=== PATIENT | male | born 1965 | race Caucasian/White ===

== ENCOUNTER 2019-09-14 13:19 | Observation (INO) ==
[2019-09-14 13:49] LABS: Immature Granulocytes % 0.5 % (0-4)
[2019-09-14 13:51] LABS: Basophils % 0.2 %; Eosinophils # 0.1 K/mcL (0.0-0.6); Eosinophils % 0.7 %; Hematocrit 31.6 % (37.5-50.1); Hemoglobin 11.3 g/dL (12.9-16.9); Immature Platelets 7.5 % (1.1-6.1); Lymphocytes # 0.9 K/mcL (0.6-4.6); Lymphocytes % 10.4 %; Mean Corpuscular HGB Conc 35.8 g/dL (31.6-35.5); Mean Corpuscular Hemoglobin 33.3 pg (28.0-33.3); Mean Corpuscular Volume 93.2 fL (83.0-100.0); Mean Platelet Volume 10.6 fL (9.4-12.4); Monocytes # 0.9 K/mcL (0.0-1.3); Monocytes % 10.6 %; Neutrophils # 6.4 K/mcL (1.6-8.9); Red Blood Count 3.39 M/mcL (4.19-5.50); Red Cell Distribution Width 14.8 % (11.5-14.5); Segmented Neutrophils % 77.6 %; White Blood Count 8.3 K/mcL (4.3-11.1)
[2019-09-14 13:52] LABS: Platelet Count 88 K/mcL (140-400)
[2019-09-14 13:55] LABS: INR 0.9; Prothrombin Time 10.3 Seconds (9.4-12.1)
[2019-09-14 13:58] LABS: Activated Partial Thrombo Time 40.2 Seconds (26.0-36.0)
[2019-09-14 14:09] LABS: BUN/Creatinine Ratio 9 (6-26); Blood Urea Nitrogen 9 mg/dL (6-20); Calcium 8.6 mg/dL (8.6-10.3); Carbon Dioxide 24 mEq/L (23-29); Chloride 96 mEq/L (98-107); Glucose 90 mg/dL (70-105); Osmolality,Calculated 266 (280-300); Potassium 4.1 mEq/L (3.5-5.1); Sodium 129 mEq/L (136-145); Troponin I < 0.03 ng/mL (< 0.04); eGFR For African Americans > 60 (> 60); eGFR For Non-African Americans > 60 (> 60)
[2019-09-14] MEDS ORDERED: cefTRIAXone 1,000 MG in Water for inj. (sterile) 10 ML IVP STA (14:38)
[2019-09-14] MEDS ORDERED: Azithromycin 500 MG in 0.9 % Sodium Chloride 250 ML IVPB STA (14:38)
[2019-09-14] MEDS ORDERED: ALPRAZolam 0.5 MG TABLET PO ONE (15:53)
[2019-09-14] MEDS ORDERED: Naloxone 0.4 MG/ML INJ IVP PRN (16:17)
[2019-09-14] MEDS: predniSONE 20 MG TABLET PO SCH (18:26)
[2019-09-14] MEDS ORDERED: *HR* Metoprolol 5 MG/5 ML VIAL IVP ONE ×2 (18:33→19:02)
[2019-09-14 18:44] LABS: Bilirubin,Urine Negative (Negative); Blood,Urine Negative (Negative); Clarity,Urine Clear (Clear); Color,Urine Yellow (Yellow); Glucose,Urine (UA) Normal (Normal); Ketones,Urine Trace mg/dL (Negative); Leukocyte Esterase,Urine Negative (Negative); Nitrite,Urine Negative (Negative); Protein,Urine Negative (Neg-Trace); Specific Gravity,Urine 1.011 (1.010-1.025); Urobilinogen,Urine Normal (Normal)
[2019-09-14 18:52] LABS: Sodium, Urine 75.1 mEq/L
[2019-09-14 19:42] LABS: Adenovirus Not Detected (Not Detect); Bordetella Pertussis Not Detected (Not Detect); Chlamydophila pneumoniae Not Detected (Not Detect); Coronavirus 229E Not Detected (Not Detect); Coronavirus HKU1 Not Detected (Not Detect); Coronavirus NL63 Not Detected (Not Detect); Coronavirus OC43 Not Detected (Not Detect); Human Metapneumovirus Not Detected (Not Detect); Human Rhinovirus/Enterovirus Not Detected (Not Detect); Influenza A Subtype 2009 H1 Not Detected (Not Detect); Influenza A Untypeable Not Detected (Not Detect); Influenza B Not Detected (Not Detect); Mycoplasma pneumoniae Not Detected (Not Detect); Parainfluenza Virus 1 Not Detected (Not Detect); Parainfluenza Virus 2 Not Detected (Not Detect); Parainfluenza Virus 3 Not Detected (Not Detect); Parainfluenza Virus 4 Not Detected (Not Detect); Respiratory Syncytial Virus Not Detected (Not Detect)
[2019-09-14] MEDS: Ipratropium/Albuterol Neb 3 ML IH SCH (22:01)
[2019-09-15] MEDS: Ipratropium/Albuterol Neb 3 ML IH SCH ×2 (04:51→10:41)
[2019-09-15 05:31] LABS: Basophils % 0.2 %
[2019-09-15 05:33] LABS: Hematocrit 33.4 % (37.5-50.1); Hemoglobin 11.3 g/dL (12.9-16.9); Immature Granulocytes % 0.3 % (0-4); Immature Platelets 8.6 % (1.1-6.1); Lymphocytes # 0.5 K/mcL (0.6-4.6); Lymphocytes % 7.8 %; Mean Corpuscular HGB Conc 33.8 g/dL (31.6-35.5); Mean Corpuscular Hemoglobin 32.6 pg (28.0-33.3); Mean Corpuscular Volume 96.3 fL (83.0-100.0); Mean Platelet Volume 10.8 fL (9.4-12.4); Monocytes # 0.1 K/mcL (0.0-1.3); Monocytes % 1.8 %; Neutrophils # 5.4 K/mcL (1.6-8.9); Red Blood Count 3.47 M/mcL (4.19-5.50); Red Cell Distribution Width 15.1 % (11.5-14.5); Segmented Neutrophils % 89.9 %
[2019-09-15 05:44] LABS: Platelet Count 88 K/mcL (140-400)
[2019-09-15 05:47] LABS: BUN/Creatinine Ratio 10 (6-26); Blood Urea Nitrogen 9 mg/dL (6-20); Calcium 8.9 mg/dL (8.6-10.3); Carbon Dioxide 22 mEq/L (23-29); Chloride 99 mEq/L (98-107); Glucose 107 mg/dL (70-105); Magnesium 1.5 mg/dL (1.6-2.6); Osmolality,Calculated 269 (280-300); Phosphorous 3.6 mg/dL (2.7-4.5); Potassium 4.6 mEq/L (3.5-5.1); Sodium 130 mEq/L (136-145); eGFR For African Americans > 60 (> 60); eGFR For Non-African Americans > 60 (> 60)
[2019-09-15] MEDS ORDERED: Doxycycline 100 MG in 0.9 % Sodium Chloride Mini Bag 100 ML IVPB SCH (06:00)
[2019-09-15] MEDS: predniSONE 20 MG TABLET PO SCH (08:21)
[2019-09-15] MEDS ORDERED: Folic Acid 1 MG TABLET PO SCH (09:00)
[2019-09-15] MEDS ORDERED: cefTRIAXone 1,000 MG in Water for inj. (sterile) 10 ML IVP SCH (09:00)
[2019-09-15 11:42] VITALS: BP 115/80
[2019-09-15] MEDS ORDERED: FLU Vac QV 19-20 (6Month+)/PF 0.5 ML SYRINGE IM ONE (15:04)
[2019-09-28] MEDS ORDERED: HALOPERIDOL DECANOATE IM SCH (09:00)
== END 2019-09-15 16:16 | disposition home or self-care (01) ==
LOC: EMEROOARM 13:19 → 2ANU 13:19 → SUATTDRO 16:36 → 2ANU 17:31
PROVIDERS: ADMIT Internal Medicine; ATTEND Internal Medicine

== ENCOUNTER 2019-11-19 11:08 | Inpatient (IN) ==
[2019-11-19] MEDS ORDERED: 0.9 % Sodium Chloride 1,000 ML IVC ONE (11:24)
[2019-11-19 12:29] LABS: Basophils % 0.5 %; Eosinophils # 0.1 K/mcL (0.0-0.6); Eosinophils % 2.3 %; Hematocrit 34.4 % (37.5-50.1); Hemoglobin 11.5 g/dL (12.9-16.9); Immature Granulocytes % 0.5 % (0-4); Lymphocytes # 0.7 K/mcL (0.6-4.6); Lymphocytes % 11.4 %; Mean Corpuscular HGB Conc 33.4 g/dL (31.6-35.5); Mean Corpuscular Hemoglobin 32.9 pg (28.0-33.3); Mean Corpuscular Volume 98.3 fL (83.0-100.0); Mean Platelet Volume 11.1 fL (9.4-12.4); Monocytes # 0.7 K/mcL (0.0-1.3); Monocytes % 11.2 %; Red Cell Distribution Width 13.2 % (11.5-14.5); Segmented Neutrophils % 74.1 %
[2019-11-19 12:30] LABS: INR 1.2; Prothrombin Time 13.3 Seconds (9.4-12.1)
[2019-11-19 12:31] LABS: Neutrophils # 4.5 K/mcL (1.6-8.9); Platelet Count 81 K/mcL (140-400)
[2019-11-19 12:32] LABS: Platelet Estimate Decreased (Normal)
[2019-11-19 12:52] LABS: Alanine Aminotransferase 4 Units/L (7-52); Albumin/Globulin Ratio 0.8 (1.1-2.2); Alkaline Phosphatase 73 Units/L (34-104); Aspartate Amino Transferase 6 Units/L (13-39); BUN/Creatinine Ratio 10 (6-26); Bilirubin,Direct 0.1 mg/dL (0.0-0.2); Bilirubin,Indirect 0.3 mg/dL (0.0-1.0); Bilirubin,Total 0.4 mg/dL (0.3-1.0); Blood Urea Nitrogen 8 mg/dL (6-20); Carbon Dioxide 25 mEq/L (23-29); Chloride 98 mEq/L (98-107); Globulin 3.8 g/dL (2.4-3.5); Glucose 84 mg/dL (70-105); Lipase < 3 Units/L (11-82); Magnesium 1.4 mg/dL (1.6-2.6); Osmolality,Calculated 264 (280-300); Potassium 3.1 mEq/L (3.5-5.1); Sodium 128 mEq/L (136-145); Total Protein 6.8 g/dL (6.4-8.9); eGFR For African Americans > 60 (> 60); eGFR For Non-African Americans > 60 (> 60)
[2019-11-19 13:29] LABS: Bilirubin,Urine Negative (Negative); Blood,Urine Negative (Negative); Clarity,Urine Clear (Clear); Color,Urine Yellow (Yellow); Glucose,Urine (UA) Normal (Normal); Ketones,Urine Negative (Negative); Leukocyte Esterase,Urine Negative (Negative); Nitrite,Urine Negative (Negative); Protein,Urine Negative (Neg-Trace); Specific Gravity,Urine 1.013 (1.010-1.025); Urobilinogen,Urine Normal (Normal)
[2019-11-19] MEDS ORDERED: Ondansetron 4 MG/2 ML VIAL IVP PRN (13:45)
[2019-11-19] MEDS ORDERED: Naloxone 0.4 MG/ML INJ IVP PRN (13:45)
[2019-11-19] MEDS ORDERED: SODIUM CHLORIDE/NAHCO3/KCL/PEG 4,000 ML SOLN.RECON PO ONE (17:00)
[2019-11-19] MEDS: 0.9 % Sodium Chloride 1,000 ML IVC SCH (17:14)
[2019-11-20 04:57] LABS: Eosinophils % 5.1 %
[2019-11-20 04:59] LABS: Basophils % 0.9 %; Eosinophils # 0.2 K/mcL (0.0-0.6); Hematocrit 36.1 % (37.5-50.1); Immature Granulocytes % 0.7 % (0-4); Immature Platelets 7.1 % (1.1-6.1); Lymphocytes # 0.8 K/mcL (0.6-4.6); Lymphocytes % 17.6 %; Mean Corpuscular HGB Conc 33.2 g/dL (31.6-35.5); Mean Corpuscular Hemoglobin 32.1 pg (28.0-33.3); Mean Corpuscular Volume 96.5 fL (83.0-100.0); Mean Platelet Volume 10.8 fL (9.4-12.4); Monocytes # 0.6 K/mcL (0.0-1.3); Monocytes % 13.9 %; Neutrophils # 2.8 K/mcL (1.6-8.9); Red Blood Count 3.74 M/mcL (4.19-5.50); Red Cell Distribution Width 13.3 % (11.5-14.5); Segmented Neutrophils % 61.8 %; White Blood Count 4.5 K/mcL (4.3-11.1)
[2019-11-20 05:04] LABS: Platelet Count 72 K/mcL (140-400)
[2019-11-20 05:20] LABS: BUN/Creatinine Ratio 7 (6-26); Blood Urea Nitrogen 5 mg/dL (6-20); Calcium 8.1 mg/dL (8.6-10.3); Carbon Dioxide 22 mEq/L (23-29); Chloride 102 mEq/L (98-107); Glucose 86 mg/dL (70-105); Magnesium 1.4 mg/dL (1.6-2.6); Osmolality,Calculated 273 (280-300); Phosphorous 2.8 mg/dL (2.7-4.5); Potassium 3.4 mEq/L (3.5-5.1); Sodium 133 mEq/L (136-145); eGFR For African Americans > 60 (> 60); eGFR For Non-African Americans > 60 (> 60)
[2019-11-20] MEDS: 0.9 % Sodium Chloride 1,000 ML IVC SCH (06:38)
[2019-11-20] MEDS: Pantoprazole 40 MG VIAL IVP SCH (08:02)
[2019-11-20] MEDS ORDERED: *HR* LORazepam 2 MG/ML VIAL IVP ONE (08:30)
[2019-11-20] MEDS ORDERED: *HR* EPINEPHrine 1 MG/10 ML SYRINGE IVP ONE (13:40)
[2019-11-20] MEDS ORDERED: Lidocaine -MPF 2% 2 ML VIAL ONE (14:19)
[2019-11-20] MEDS ORDERED: *HR* EPINEPHrine 1 MG/10 ML SYRINGE ONE (14:24)
[2019-11-20] MEDS: Divalproex (24 HR) 500 MG TABLET PO SCH (20:38)
[2019-11-21 07:43] LABS: BUN/Creatinine Ratio 6 (6-26); Blood Urea Nitrogen 4 mg/dL (6-20); Calcium 7.8 mg/dL (8.6-10.3); Carbon Dioxide 22 mEq/L (23-29); Chloride 101 mEq/L (98-107); Glucose 79 mg/dL (70-105); Magnesium 1.5 mg/dL (1.6-2.6); Osmolality,Calculated 270 (280-300); Potassium 3.2 mEq/L (3.5-5.1); Sodium 132 mEq/L (136-145); eGFR For African Americans > 60 (> 60); eGFR For Non-African Americans > 60 (> 60)
[2019-11-21] MEDS: Metoprolol XL (24 HR) Succ 25 MG TAB.ER.24H PO SCH (08:00)
[2019-11-21] MEDS: Aspirin Enteric Coated 81 MG Tablet PO SCH (08:07)
[2019-11-21] MEDS: Pantoprazole 40 MG VIAL IVP SCH (08:08)
[2019-11-21] MEDS ORDERED: Potassium Chloride Elixir 20 MEQ/15 ML UDC PO ONE ×2 (12:24→17:00)
[2019-11-21] MEDS: Divalproex (24 HR) 500 MG TABLET PO SCH (21:12)
[2019-11-22 05:42] LABS: BUN/Creatinine Ratio 7 (6-26); Blood Urea Nitrogen 5 mg/dL (6-20); Calcium 7.8 mg/dL (8.6-10.3); Carbon Dioxide 22 mEq/L (23-29); Chloride 96 mEq/L (98-107); Glucose 78 mg/dL (70-105); Magnesium 1.8 mg/dL (1.6-2.6); Osmolality,Calculated 258 (280-300); Potassium 3.4 mEq/L (3.5-5.1); Sodium 126 mEq/L (136-145); eGFR For African Americans > 60 (> 60); eGFR For Non-African Americans > 60 (> 60)
[2019-11-22] MEDS ORDERED: Potassium Chloride Elixir 20 MEQ/15 ML UDC PO ONE (07:33)
[2019-11-22] MEDS: Pantoprazole 40 MG VIAL IVP SCH (09:13)
[2019-11-22] MEDS: Metoprolol XL (24 HR) Succ 25 MG TAB.ER.24H PO SCH (09:13)
[2019-11-22] MEDS: Aspirin Enteric Coated 81 MG Tablet PO SCH (09:13)
[2019-11-22] MEDS: (Valbenazine Tosylate [Ingrezza] 40 MG) PO SCH (11:35)
[2019-11-22] MEDS: Divalproex (24 HR) 500 MG TABLET PO SCH (19:35)
[2019-11-23 03:53] VITALS: BP 154/83
[2019-11-23 04:56] LABS: Hemoglobin 11.1 g/dL (12.9-16.9); Red Cell Distribution Width 13.2 % (11.5-14.5)
[2019-11-23 04:58] LABS: Immature Platelets 4.4 % (1.1-6.1); Mean Corpuscular HGB Conc 33.6 g/dL (31.6-35.5); Mean Corpuscular Hemoglobin 32.7 pg (28.0-33.3); Mean Corpuscular Volume 97.3 fL (83.0-100.0); Mean Platelet Volume 10.5 fL (9.4-12.4); Red Blood Count 3.39 M/mcL (4.19-5.50); White Blood Count 4.6 K/mcL (4.3-11.1)
[2019-11-23 05:24] LABS: BUN/Creatinine Ratio 9 (6-26); Blood Urea Nitrogen 6 mg/dL (6-20); Calcium 7.8 mg/dL (8.6-10.3); Carbon Dioxide 22 mEq/L (23-29); Chloride 98 mEq/L (98-107); Glucose 71 mg/dL (70-105); Osmolality,Calculated 260 (280-300); Potassium 3.5 mEq/L (3.5-5.1); Sodium 127 mEq/L (136-145); eGFR For African Americans > 60 (> 60); eGFR For Non-African Americans > 60 (> 60)
[2019-11-23 05:25] LABS: % Iron Saturation 25 % (20-55); Iron 53 mcg/dL (65-175); Transferrin 152 mg/dL (203-362)
[2019-11-23 05:38] LABS: Thyroid Stimulating Hormone 6.861 mcIU/mL (0.340-5.600)
[2019-11-23 05:43] LABS: Ferritin 99 ng/mL (20-250)
[2019-11-23 05:48] LABS: Folate 14.8 ng/mL (3.0-16.0)
[2019-11-23] MEDS: Metoprolol XL (24 HR) Succ 25 MG TAB.ER.24H PO SCH (08:26)
[2019-11-23] MEDS: Aspirin Enteric Coated 81 MG Tablet PO SCH (08:26)
[2019-11-23] MEDS: (Valbenazine Tosylate [Ingrezza] 40 MG) PO SCH (08:27)
[2019-11-24] MEDS ORDERED: Cyanocobalamin (B-12) 1,000 MCG TABLET PO SCH (09:00)
== END 2019-11-23 11:54 | disposition home or self-care (01) | DRG 392 ==
LOC: 3ANU 11:08 → EMEROOARM 11:08 → SUATTDRO 15:27 → 3ANU 15:50
PROVIDERS: ADMIT Student in an Organized Health Care Education/Training Program; ATTEND Internal Medicine
PROC: ENDOEBX (2019-11-20 13:35)

== ENCOUNTER 2020-02-01 15:08 | Inpatient (IN) ==
[2020-02-01] MEDS ORDERED: 0.9 % Sodium Chloride 1,000 ML IVC ONE (15:13)
[2020-02-01 15:47] LABS: Basophils % 0.2 %; Eosinophils % 0.1 %; Hematocrit 35.2 % (37.5-50.1); Hemoglobin 11.9 g/dL (12.9-16.9); Immature Granulocytes % 0.8 % (0-4); Lymphocytes # 0.7 K/mcL (0.6-4.6); Lymphocytes % 3.5 %; Mean Corpuscular HGB Conc 33.8 g/dL (31.6-35.5); Mean Corpuscular Hemoglobin 31.6 pg (28.0-33.3); Mean Corpuscular Volume 93.4 fL (83.0-100.0); Mean Platelet Volume 11.6 fL (9.4-12.4); Monocytes # 1.6 K/mcL (0.0-1.3); Monocytes % 8.6 %; Neutrophils # 16.5 K/mcL (1.6-8.9); Platelet Count 147 K/mcL (140-400); Red Blood Count 3.77 M/mcL (4.19-5.50); Red Cell Distribution Width 17.4 % (11.5-14.5); Segmented Neutrophils % 86.8 %
[2020-02-01] MEDS ORDERED: cefTRIAXone 1,000 MG in Water for inj. (sterile) 10 ML IVPB ONE (16:47)
[2020-02-01 16:49] LABS: Alanine Aminotransferase 10 Units/L (7-52); Albumin 3.3 g/dL (3.5-5.7); Albumin/Globulin Ratio 1.1 (1.1-2.2); Alkaline Phosphatase 84 Units/L (34-104); Aspartate Amino Transferase 17 Units/L (13-39); BUN/Creatinine Ratio 16 (6-26); Bilirubin,Direct 0.2 mg/dL (0.0-0.2); Bilirubin,Indirect 0.6 mg/dL (0.0-1.0); Bilirubin,Total 0.8 mg/dL (0.3-1.0); Blood Urea Nitrogen 29 mg/dL (6-20); Calcium 8.6 mg/dL (8.6-10.3); Carbon Dioxide 8 mEq/L (23-29); Chloride 116 mEq/L (98-107); Glucose 81 mg/dL (70-105); Lipase 27 Units/L (11-82); Osmolality,Calculated 289 (280-300); Potassium 2.5 mEq/L (3.5-5.1); Sodium 137 mEq/L (136-145); Total Protein 6.3 g/dL (6.4-8.9); Troponin I < 0.03 ng/mL (< 0.04); eGFR For African Americans 49 (> 60); eGFR For Non-African Americans 40 (> 60)
[2020-02-01] MEDS ORDERED: Potassium Chloride Elixir 20 MEQ/15 ML UDC PO ONE ×2 (16:58→17:27)
[2020-02-01 17:04] LABS: Bilirubin,Urine Negative (Negative); Blood,Urine Small (Negative); Clarity,Urine Cloudy (Clear); Color,Urine Yellow (Yellow); Glucose,Urine (UA) Normal (Normal); Ketones,Urine Negative (Negative); Leukocyte Esterase,Urine Moderate (Negative); Nitrite,Urine Positive (Negative); PH,Urine 5.5 pH Units (5.0-8.0); Protein,Urine 30 mg/dL (Neg-Trace); Specific Gravity,Urine 1.012 (1.010-1.025); Urobilinogen,Urine Normal (Normal)
[2020-02-01 17:05] LABS: Bacteria,Urine None Seen per hpf (None-Few); Hyaline Casts,Urine None Seen per lpf (None-Few); RBC,Urine 0-3 per hpf (0-3); Squamous Epithelial Cell,Urine Moderate per lpf (None-Few); WBC,Urine 30-50 per hpf (0-3)
[2020-02-01] MEDS ORDERED: Naloxone 0.4 MG/ML INJ IVP PRN (17:24)
[2020-02-01] MEDS ORDERED: Ondansetron 4 MG/2 ML VIAL IVP PRN (17:24)
[2020-02-01] MEDS ORDERED: Diphenoxylate/Atropine 1 TAB TABLET PO PRN (17:28)
[2020-02-01] MEDS ORDERED: haloperidoL 5 MG TABLET PO PRN (17:28)
[2020-02-01] MEDS: *HR* Heparin 5,000 UNIT/ML VIAL SQ SCH (19:25)
[2020-02-01] MEDS: Sodium Bicarbonate 150 MEQ in D5% in Water 1,000 ML IVC SCH (19:54)
[2020-02-01] MEDS: Divalproex (24 HR) 500 MG TABLET PO SCH ×2 (20:07→21:07)
[2020-02-02] MEDS ORDERED: Piperacillin/Tazobactam 3.375 GM in 0.9 % Sodium Chloride Mini Bag 100 ML IVPB SCH
[2020-02-02 02:22] LABS: Basophils % 0.3 %; Eosinophils % 0.1 %; Hematocrit 30.6 % (37.5-50.1); Hemoglobin 10.5 g/dL (12.9-16.9); Immature Granulocytes % 0.9 % (0-4); Lymphocytes # 0.9 K/mcL (0.6-4.6); Lymphocytes % 6.3 %; Mean Corpuscular HGB Conc 34.3 g/dL (31.6-35.5); Mean Corpuscular Hemoglobin 31.9 pg (28.0-33.3); Mean Platelet Volume 11.7 fL (9.4-12.4); Monocytes # 1.3 K/mcL (0.0-1.3); Monocytes % 9.2 %; Neutrophils # 11.6 K/mcL (1.6-8.9); Platelet Count 129 K/mcL (140-400); Red Blood Count 3.29 M/mcL (4.19-5.50); Red Cell Distribution Width 17.6 % (11.5-14.5); Segmented Neutrophils % 83.2 %
[2020-02-02 02:42] LABS: Calcium 8.1 mg/dL (8.6-10.3); Magnesium 1.6 mg/dL (1.6-2.6); Potassium 2.4 mEq/L (3.5-5.1)
[2020-02-02] MEDS: *HR* Heparin 5,000 UNIT/ML VIAL SQ SCH ×2 (05:09→17:28)
[2020-02-02] MEDS: Cholestyramine 4 GM POWD.PACK PO SCH (06:06)
[2020-02-02] MEDS ORDERED: Potassium Chloride 40 MEQ, Lidocaine 1% 2 ML in 0.9 % Sodium Chloride 500 ML IVPB ONE (07:21)
[2020-02-02] MEDS: Folic Acid 1 MG TABLET PO SCH (08:04)
[2020-02-02] MEDS: haloperidoL 5 MG TABLET PO SCH (08:04)
[2020-02-02] MEDS: Cyanocobalamin (B-12) 1,000 MCG TABLET PO SCH (08:04)
[2020-02-02] MEDS: Metoprolol XL (24 HR) Succ 25 MG TAB.ER.24H PO SCH (08:04)
[2020-02-02] MEDS: (Valbenazine Tosylate [Ingrezza] 40 MG) PO SCH (08:04)
[2020-02-02] MEDS: Sodium Bicarbonate 150 MEQ in D5% in Water 1,000 ML IVC SCH (11:37)
[2020-02-02 16:25] LABS: VBG Ionized Calcium 1.27 mmol/L (1.15-1.35)
[2020-02-02] MEDS: cefTRIAXone 2,000 MG in Water for inj. (sterile) 20 ML IVP SCH (17:28)
[2020-02-02] MEDS: Potassium Chloride Elixir 20 MEQ/15 ML UDC PO SCH ×2 (18:22→21:45)
[2020-02-02] MEDS ORDERED: Potassium Chloride Elixir 20 MEQ/15 ML UDC PO ONE (21:00)
[2020-02-02] MEDS: Divalproex (24 HR) 500 MG TABLET PO SCH (21:45)
[2020-02-03 01:26] LABS: Hematocrit 31.1 % (37.5-50.1); Red Blood Count 3.38 M/mcL (4.19-5.50)
[2020-02-03 01:28] LABS: Hemoglobin 10.6 g/dL (12.9-16.9); Immature Platelets 7.9 % (1.1-6.1); Mean Corpuscular HGB Conc 34.1 g/dL (31.6-35.5); Mean Corpuscular Hemoglobin 31.4 pg (28.0-33.3); Mean Platelet Volume 12.1 fL (9.4-12.4); Red Cell Distribution Width 18.5 % (11.5-14.5); White Blood Count 11.6 K/mcL (4.3-11.1)
[2020-02-03 01:31] LABS: BUN/Creatinine Ratio 25 (6-26); Blood Urea Nitrogen 26 mg/dL (6-20); Calcium 8.2 mg/dL (8.6-10.3); Carbon Dioxide 16 mEq/L (23-29); Chloride 109 mEq/L (98-107); Glucose 82 mg/dL (70-105); Magnesium 2.3 mg/dL (1.6-2.6); Osmolality,Calculated 284 (280-300); Potassium 2.7 mEq/L (3.5-5.1); Sodium 135 mEq/L (136-145); eGFR For African Americans > 60 (> 60); eGFR For Non-African Americans > 60 (> 60)
[2020-02-03 04:05] LABS: Campylobacter by PCR Not detected (Not detect)
[2020-02-03 04:06] LABS: Adenovirus F 40/41 PCR Not detected (Not detect); Astrovirus PCR Not detected (Not detect); C.difficile Toxin A/B Gene PCR DETECTED (Not detect); Cryptosporidium by PCR Not detected (Not detect); Cyclospora cayetanensis PCR Not detected (Not detect); E. coli O157 by PCR Not detected (Not detect); Entamoeba histolytica PCR Not detected (Not detect); Enteroaggregative E.coli(EAEC) Not detected (Not detect); Enteropathogenic E.coli(EPEC) Not detected (Not detect); Enterotoxigenic E.coli (ETEC) Not detected (Not detect); Giardia lamblia PCR Not detected (Not detect); Norovirus GI/GII PCR Not detected (Not detect); Plesiomonas shigelloides PCR Not detected (Not detect); Rotavirus A PCR Not detected (Not detect); Salmonella PCR Not detected (Not detect); Sapovirus PCR Not detected (Not detect); Shig/EnteroinvasiveE coli EIEC Not detected (Not detect); Shigalike tox-prod E coli STEC Not detected (Not detect); Vibrio PCR Not detected (Not detect); Vibrio cholerae PCR Not detected (Not detect); Yersinia enterocolitica PCR Not detected (Not detect)
[2020-02-03] MEDS: *HR* Heparin 5,000 UNIT/ML VIAL SQ SCH ×2 (05:23→17:59)
[2020-02-03] MEDS: Cholestyramine 4 GM POWD.PACK PO SCH (06:31)
[2020-02-03] MEDS ORDERED: Potassium Chloride 40 MEQ, Lidocaine 1% 2 ML in 0.9 % Sodium Chloride 500 ML IVPB ONE (07:32)
[2020-02-03] MEDS: Folic Acid 1 MG TABLET PO SCH (09:01)
[2020-02-03] MEDS: Lactobacillus 1 EACH CAP.SPRINK PO SCH ×2 (09:01→20:01)
[2020-02-03] MEDS: haloperidoL 5 MG TABLET PO SCH (09:01)
[2020-02-03] MEDS: Cyanocobalamin (B-12) 1,000 MCG TABLET PO SCH (09:01)
[2020-02-03] MEDS: Potassium Chloride Elixir 20 MEQ/15 ML UDC PO SCH ×2 (09:02→20:00)
[2020-02-03] MEDS: Ergocalciferol (VIT D2) 50,000 UNIT (1.25MG) CAP PO SCH (09:02)
[2020-02-03] MEDS: Metoprolol XL (24 HR) Succ 25 MG TAB.ER.24H PO SCH (09:02)
[2020-02-03] MEDS: Vancomycin Oral Soln 125 MG/2.5 ML UDC PO SCH ×4 (09:03→20:01)
[2020-02-03] MEDS: (Valbenazine Tosylate [Ingrezza] 40 MG) PO SCH (09:03)
[2020-02-03] MEDS ORDERED: Potassium Chloride Elixir 20 MEQ/15 ML UDC PO ONE (17:00)
[2020-02-03] MEDS: cefTRIAXone 2,000 MG in Water for inj. (sterile) 20 ML IVP SCH (17:58)
[2020-02-03] MEDS: Divalproex (24 HR) 500 MG TABLET PO SCH (20:01)
[2020-02-04 05:53] LABS: Hematocrit 29.1 % (37.5-50.1); Hemoglobin 9.8 g/dL (12.9-16.9); Immature Platelets 7.5 % (1.1-6.1); Mean Corpuscular HGB Conc 33.7 g/dL (31.6-35.5); Mean Corpuscular Volume 95.1 fL (83.0-100.0); Red Blood Count 3.06 M/mcL (4.19-5.50); Red Cell Distribution Width 18.8 % (11.5-14.5); White Blood Count 5.4 K/mcL (4.3-11.1)
[2020-02-04] MEDS: *HR* Heparin 5,000 UNIT/ML VIAL SQ SCH ×2 (06:05→17:16)
[2020-02-04 06:53] LABS: BUN/Creatinine Ratio 16 (6-26); Blood Urea Nitrogen 14 mg/dL (6-20); Calcium 8.1 mg/dL (8.6-10.3); Carbon Dioxide 10 mEq/L (23-29); Chloride 116 mEq/L (98-107); Glucose 68 mg/dL (70-105); Magnesium 1.8 mg/dL (1.6-2.6); Osmolality,Calculated 279 (280-300); Potassium 3.1 mEq/L (3.5-5.1); Sodium 135 mEq/L (136-145); eGFR For African Americans > 60 (> 60); eGFR For Non-African Americans > 60 (> 60)
[2020-02-04] MEDS ORDERED: Potassium Chloride Elixir 20 MEQ/15 ML UDC PO ONE (07:17)
[2020-02-04] MEDS: Cyanocobalamin (B-12) 1,000 MCG TABLET PO SCH (08:06)
[2020-02-04] MEDS: Folic Acid 1 MG TABLET PO SCH (08:06)
[2020-02-04] MEDS: haloperidoL 5 MG TABLET PO SCH (08:06)
[2020-02-04] MEDS: Metoprolol XL (24 HR) Succ 25 MG TAB.ER.24H PO SCH (08:06)
[2020-02-04] MEDS: Lactobacillus 1 EACH CAP.SPRINK PO SCH ×2 (08:06→20:56)
[2020-02-04] MEDS: (Valbenazine Tosylate [Ingrezza] 40 MG) PO SCH (08:07)
[2020-02-04] MEDS: Vancomycin Oral Soln 125 MG/2.5 ML UDC PO SCH ×4 (08:07→20:57)
[2020-02-04 08:48] LABS: Immunoglobulin A (CELIAC) 667 mg/dL (68-408)
[2020-02-04] MEDS: Sodium Bicarbonate 150 MEQ in D5% in Water 1,000 ML IVC SCH (10:09)
[2020-02-04] MEDS: Potassium Chloride Elixir 20 MEQ/15 ML UDC PO SCH ×2 (10:16→20:55)
[2020-02-04 13:34] LABS: Tissue Transglutaminase IgA 2 U/mL (0-3)
[2020-02-04] MEDS: Cholestyramine 4 GM POWD.PACK PO SCH (15:42)
[2020-02-04] MEDS: cefTRIAXone 2,000 MG in Water for inj. (sterile) 20 ML IVP SCH (17:17)
[2020-02-04] MEDS: Divalproex (24 HR) 500 MG TABLET PO SCH (20:56)
[2020-02-04] MEDS: Carbidopa/Levodopa 25/100 TABLET PO SCH (20:56)
[2020-02-05] MEDS: Sodium Bicarbonate 150 MEQ in D5% in Water 1,000 ML IVC SCH (00:04)
[2020-02-05 01:22] LABS: Hematocrit 32.1 % (37.5-50.1); Hemoglobin 10.9 g/dL (12.9-16.9); Mean Corpuscular Hemoglobin 32.1 pg (28.0-33.3); Mean Corpuscular Volume 94.4 fL (83.0-100.0); Mean Platelet Volume 12.1 fL (9.4-12.4); Platelet Count 120 K/mcL (140-400); Red Cell Distribution Width 19.1 % (11.5-14.5); White Blood Count 7.2 K/mcL (4.3-11.1)
[2020-02-05 01:35] LABS: BUN/Creatinine Ratio 10 (6-26); Blood Urea Nitrogen 8 mg/dL (6-20); Calcium 8.4 mg/dL (8.6-10.3); Carbon Dioxide 13 mEq/L (23-29); Chloride 111 mEq/L (98-107); Glucose 88 mg/dL (70-105); Magnesium 1.6 mg/dL (1.6-2.6); Osmolality,Calculated 274 (280-300); Phosphorous 2.6 mg/dL (2.7-4.5); Potassium 3.3 mEq/L (3.5-5.1); Sodium 133 mEq/L (136-145); eGFR For African Americans > 60 (> 60); eGFR For Non-African Americans > 60 (> 60)
[2020-02-05] MEDS: *HR* Heparin 5,000 UNIT/ML VIAL SQ SCH ×2 (06:19→16:51)
[2020-02-05] MEDS ORDERED: Potassium Phosphate 44 MEQ in 0.9 % Sodium Chloride 250 ML IVPB ONE (07:20)
[2020-02-05] MEDS: Cholestyramine 4 GM POWD.PACK PO SCH ×2 (07:52→16:51)
[2020-02-05] MEDS: Carbidopa/Levodopa 25/100 TABLET PO SCH (07:54)
[2020-02-05] MEDS: Cyanocobalamin (B-12) 1,000 MCG TABLET PO SCH (07:54)
[2020-02-05] MEDS: Vancomycin Oral Soln 125 MG/2.5 ML UDC PO SCH ×4 (07:54→20:12)
[2020-02-05] MEDS: Lactobacillus 1 EACH CAP.SPRINK PO SCH ×2 (07:54→20:12)
[2020-02-05] MEDS: Folic Acid 1 MG TABLET PO SCH (07:54)
[2020-02-05] MEDS: Metoprolol XL (24 HR) Succ 25 MG TAB.ER.24H PO SCH (07:54)
[2020-02-05] MEDS: haloperidoL 5 MG TABLET PO SCH (07:54)
[2020-02-05] MEDS: Potassium Chloride Elixir 20 MEQ/15 ML UDC PO SCH ×2 (08:14→20:13)
[2020-02-05] MEDS ORDERED: Sodium Bicarbonate 150 MEQ in D5% in Water 1,000 ML IVC SCH ×3 (14:00→17:15)
[2020-02-05] MEDS: cefTRIAXone 2,000 MG in Water for inj. (sterile) 20 ML IVP SCH (16:51)
[2020-02-05] MEDS: Divalproex (24 HR) 500 MG TABLET PO SCH (20:12)
[2020-02-06] MEDS: Carbidopa/Levodopa 25/100 TABLET PO SCH ×3 (01:36→22:19)
[2020-02-06 02:12] LABS: Hematocrit 31.2 % (37.5-50.1); Hemoglobin 10.8 g/dL (12.9-16.9); Mean Corpuscular HGB Conc 34.6 g/dL (31.6-35.5); Mean Corpuscular Hemoglobin 32.4 pg (28.0-33.3); Mean Corpuscular Volume 93.7 fL (83.0-100.0); Mean Platelet Volume 12.2 fL (9.4-12.4); Platelet Count 121 K/mcL (140-400); Red Blood Count 3.33 M/mcL (4.19-5.50); Red Cell Distribution Width 18.8 % (11.5-14.5); White Blood Count 5.9 K/mcL (4.3-11.1)
[2020-02-06 02:32] LABS: BUN/Creatinine Ratio 7 (6-26); Blood Urea Nitrogen 5 mg/dL (6-20); Calcium 7.7 mg/dL (8.6-10.3); Carbon Dioxide 16 mEq/L (23-29); Chloride 108 mEq/L (98-107); Glucose 86 mg/dL (70-105); Magnesium 1.3 mg/dL (1.6-2.6); Osmolality,Calculated 269 (280-300); Potassium 3.1 mEq/L (3.5-5.1); Sodium 131 mEq/L (136-145); eGFR For African Americans > 60 (> 60); eGFR For Non-African Americans > 60 (> 60)
[2020-02-06] MEDS: *HR* Heparin 5,000 UNIT/ML VIAL SQ SCH ×2 (05:15→16:25)
[2020-02-06 08:21] LABS: VBG Ionized Calcium 1.22 mmol/L (1.15-1.35)
[2020-02-06] MEDS: Folic Acid 1 MG TABLET PO SCH (08:34)
[2020-02-06] MEDS: Cyanocobalamin (B-12) 1,000 MCG TABLET PO SCH (08:34)
[2020-02-06] MEDS: Lactobacillus 1 EACH CAP.SPRINK PO SCH ×2 (08:35→22:19)
[2020-02-06] MEDS: Metoprolol XL (24 HR) Succ 25 MG TAB.ER.24H PO SCH (08:35)
[2020-02-06] MEDS: Vancomycin Oral Soln 125 MG/2.5 ML UDC PO SCH ×4 (08:35→22:19)
[2020-02-06] MEDS: haloperidoL 5 MG TABLET PO SCH (08:35)
[2020-02-06] MEDS: Cholestyramine 4 GM POWD.PACK PO SCH ×2 (08:35→16:24)
[2020-02-06] MEDS: Potassium Chloride Elixir 20 MEQ/15 ML UDC PO SCH ×2 (08:36→22:20)
[2020-02-06] MEDS: cefTRIAXone 2,000 MG in Water for inj. (sterile) 20 ML IVP SCH (16:24)
[2020-02-06] MEDS: Divalproex (24 HR) 500 MG TABLET PO SCH (22:18)
[2020-02-07 01:40] LABS: Mean Platelet Volume 12.7 fL (9.4-12.4)
[2020-02-07 01:41] LABS: Hematocrit 28.7 % (37.5-50.1); Hemoglobin 9.7 g/dL (12.9-16.9); Mean Corpuscular HGB Conc 33.8 g/dL (31.6-35.5); Mean Corpuscular Hemoglobin 31.7 pg (28.0-33.3); Mean Corpuscular Volume 93.8 fL (83.0-100.0); Red Blood Count 3.06 M/mcL (4.19-5.50); Red Cell Distribution Width 18.8 % (11.5-14.5); White Blood Count 4.7 K/mcL (4.3-11.1)
[2020-02-07 02:00] LABS: BUN/Creatinine Ratio 5 (6-26); Blood Urea Nitrogen 4 mg/dL (6-20); Calcium 7.7 mg/dL (8.6-10.3); Carbon Dioxide 13 mEq/L (23-29); Chloride 114 mEq/L (98-107); Glucose 83 mg/dL (70-105); Magnesium 1.7 mg/dL (1.6-2.6); Osmolality,Calculated 278 (280-300); Potassium 3.5 mEq/L (3.5-5.1); Sodium 136 mEq/L (136-145); eGFR For African Americans > 60 (> 60); eGFR For Non-African Americans > 60 (> 60)
[2020-02-07 08:32] LABS: BUN/Creatinine Ratio 4 (6-26); Blood Urea Nitrogen 3 mg/dL (6-20); Carbon Dioxide 15 mEq/L (23-29); Chloride 112 mEq/L (98-107); Glucose 84 mg/dL (70-105); Osmolality,Calculated 276 (280-300); Potassium 3.7 mEq/L (3.5-5.1); Sodium 135 mEq/L (136-145); eGFR For African Americans > 60 (> 60); eGFR For Non-African Americans > 60 (> 60)
[2020-02-07] MEDS: Cholestyramine 4 GM POWD.PACK PO SCH ×3 (08:46→20:28)
[2020-02-07 09:16] LABS: VBG HCO3 15 mEq/L (21-27); VBG PCO2 35 mmHg (41-51); VBG PH 7.26 pH Units (7.32-7.42); VBG PO2 102 mmHg (25-50)
[2020-02-07] MEDS: Folic Acid 1 MG TABLET PO SCH (11:19)
[2020-02-07] MEDS: Metoprolol XL (24 HR) Succ 25 MG TAB.ER.24H PO SCH (11:19)
[2020-02-07] MEDS: Carbidopa/Levodopa 25/100 TABLET PO SCH ×2 (11:19→17:45)
[2020-02-07] MEDS: Lactobacillus 1 EACH CAP.SPRINK PO SCH ×2 (11:19→17:45)
[2020-02-07] MEDS: haloperidoL 5 MG TABLET PO SCH (11:19)
[2020-02-07] MEDS: Cyanocobalamin (B-12) 1,000 MCG TABLET PO SCH (11:19)
[2020-02-07] MEDS: Potassium Chloride Elixir 20 MEQ/15 ML UDC PO SCH ×2 (11:20→17:44)
[2020-02-07] MEDS: Vancomycin Oral Soln 125 MG/2.5 ML UDC PO SCH ×4 (11:20→23:56)
[2020-02-07] MEDS: Divalproex (24 HR) 500 MG TABLET PO SCH (23:54)
[2020-02-08 02:12] LABS: Hemoglobin 9.8 g/dL (12.9-16.9)
[2020-02-08 02:13] LABS: Hematocrit 29.1 % (37.5-50.1); Immature Platelets 7.3 % (1.1-6.1); Mean Corpuscular HGB Conc 33.7 g/dL (31.6-35.5); Mean Corpuscular Hemoglobin 31.9 pg (28.0-33.3); Mean Corpuscular Volume 94.8 fL (83.0-100.0); Mean Platelet Volume 12.4 fL (9.4-12.4); Red Blood Count 3.07 M/mcL (4.19-5.50); Red Cell Distribution Width 18.7 % (11.5-14.5); White Blood Count 6.9 K/mcL (4.3-11.1)
[2020-02-08 02:31] LABS: BUN/Creatinine Ratio 3 (6-26); Blood Urea Nitrogen 3 mg/dL (6-20); Calcium 7.9 mg/dL (8.6-10.3); Carbon Dioxide 13 mEq/L (23-29); Chloride 113 mEq/L (98-107); Glucose 83 mg/dL (70-105); Magnesium 1.4 mg/dL (1.6-2.6); Osmolality,Calculated 270 (280-300); Potassium 3.7 mEq/L (3.5-5.1); Sodium 132 mEq/L (136-145); eGFR For African Americans > 60 (> 60); eGFR For Non-African Americans > 60 (> 60)
[2020-02-08] MEDS: Potassium Chloride Elixir 20 MEQ/15 ML UDC PO SCH ×2 (05:42→17:41)
[2020-02-08] MEDS: Metoprolol XL (24 HR) Succ 25 MG TAB.ER.24H PO SCH (05:43)
[2020-02-08] MEDS: Carbidopa/Levodopa 25/100 TABLET PO SCH ×2 (05:43→17:41)
[2020-02-08] MEDS: Folic Acid 1 MG TABLET PO SCH (05:43)
[2020-02-08] MEDS: Lactobacillus 1 EACH CAP.SPRINK PO SCH ×2 (05:44→17:41)
[2020-02-08] MEDS: haloperidoL 5 MG TABLET PO SCH (05:44)
[2020-02-08] MEDS: Cyanocobalamin (B-12) 1,000 MCG TABLET PO SCH (05:44)
[2020-02-08] MEDS: Vancomycin Oral Soln 125 MG/2.5 ML UDC PO SCH ×3 (05:44→17:41)
[2020-02-08 07:40] LABS: Phosphorous 2.5 mg/dL (2.7-4.5)
[2020-02-08] MEDS: Diphenoxylate/Atropine 1 TAB TABLET PO SCH ×2 (09:14→17:41)
[2020-02-08] MEDS: Cholestyramine 4 GM POWD.PACK PO SCH ×3 (09:14→21:03)
[2020-02-08] MEDS: Sodium Bicarbonate 150 MEQ in D5% in Water 1,000 ML IVC SCH (10:30)
[2020-02-08 12:12] LABS: BUN/Creatinine Ratio 5 (6-26); Blood Urea Nitrogen 4 mg/dL (6-20); Calcium 8.4 mg/dL (8.6-10.3); Carbon Dioxide 13 mEq/L (23-29); Chloride 114 mEq/L (98-107); Glucose 91 mg/dL (70-105); Osmolality,Calculated 272 (280-300); Potassium 4.1 mEq/L (3.5-5.1); Sodium 133 mEq/L (136-145); eGFR For African Americans > 60 (> 60); eGFR For Non-African Americans > 60 (> 60)
[2020-02-08] MEDS ORDERED: Lactobacillus 1 EACH CAP.SPRINK PO ONE (19:41)
[2020-02-09] MEDS: Divalproex (24 HR) 500 MG TABLET PO SCH ×2 (01:56→23:00)
[2020-02-09] MEDS: Vancomycin Oral Soln 125 MG/2.5 ML UDC PO SCH ×5 (01:57→23:03)
[2020-02-09 01:59] LABS: Mean Corpuscular HGB Conc 33.9 g/dL (31.6-35.5); Red Cell Distribution Width 18.6 % (11.5-14.5)
[2020-02-09 02:01] LABS: Hemoglobin 10.5 g/dL (12.9-16.9); Immature Platelets 9.5 % (1.1-6.1); Mean Corpuscular Hemoglobin 32.3 pg (28.0-33.3); Mean Corpuscular Volume 95.4 fL (83.0-100.0); Mean Platelet Volume 12.5 fL (9.4-12.4); Red Blood Count 3.25 M/mcL (4.19-5.50)
[2020-02-09 02:07] LABS: BUN/Creatinine Ratio 5 (6-26); Blood Urea Nitrogen 4 mg/dL (6-20); Calcium 7.6 mg/dL (8.6-10.3); Carbon Dioxide 16 mEq/L (23-29); Chloride 111 mEq/L (98-107); Glucose 80 mg/dL (70-105); Magnesium 1.7 mg/dL (1.6-2.6); Osmolality,Calculated 274 (280-300); Potassium 3.2 mEq/L (3.5-5.1); Sodium 134 mEq/L (136-145); eGFR For African Americans > 60 (> 60); eGFR For Non-African Americans > 60 (> 60)
[2020-02-09] MEDS: Sodium Bicarbonate 150 MEQ in D5% in Water 1,000 ML IVC SCH ×2 (02:11→15:35)
[2020-02-09] MEDS: Carbidopa/Levodopa 25/100 TABLET PO SCH ×2 (05:43→17:47)
[2020-02-09] MEDS: Potassium Chloride Elixir 20 MEQ/15 ML UDC PO SCH ×2 (05:43→17:46)
[2020-02-09] MEDS: Cyanocobalamin (B-12) 1,000 MCG TABLET PO SCH (05:44)
[2020-02-09] MEDS: Folic Acid 1 MG TABLET PO SCH (05:44)
[2020-02-09] MEDS: haloperidoL 5 MG TABLET PO SCH (05:44)
[2020-02-09] MEDS: Metoprolol XL (24 HR) Succ 25 MG TAB.ER.24H PO SCH (05:44)
[2020-02-09] MEDS: Diphenoxylate/Atropine 1 TAB TABLET PO SCH ×2 (07:50→22:56)
[2020-02-09] MEDS: Lactobacillus 1 EACH CAP.SPRINK PO SCH (07:50)
[2020-02-09] MEDS: Cholestyramine 4 GM POWD.PACK PO SCH ×3 (07:51→19:50)
[2020-02-09] MEDS ORDERED: Potassium Chloride 40 MEQ, Lidocaine 1% 2 ML in 0.9 % Sodium Chloride 500 ML IVPB ONE ×2 (08:59→22:43)
[2020-02-10] MEDS: Cholestyramine 4 GM POWD.PACK PO SCH ×5 (01:40→22:07)
[2020-02-10 03:57] LABS: Hemoglobin 10.1 g/dL (12.9-16.9); Mean Corpuscular Volume 96.5 fL (83.0-100.0)
[2020-02-10 03:59] LABS: Hematocrit 30.3 % (37.5-50.1); Immature Platelets 7.7 % (1.1-6.1); Mean Corpuscular HGB Conc 33.3 g/dL (31.6-35.5); Mean Corpuscular Hemoglobin 32.2 pg (28.0-33.3); Mean Platelet Volume 12.1 fL (9.4-12.4); Red Blood Count 3.14 M/mcL (4.19-5.50); Red Cell Distribution Width 18.4 % (11.5-14.5); White Blood Count 6.9 K/mcL (4.3-11.1)
[2020-02-10 04:18] LABS: BUN/Creatinine Ratio 7 (6-26); Blood Urea Nitrogen 4 mg/dL (6-20); Calcium 7.8 mg/dL (8.6-10.3); Carbon Dioxide 18 mEq/L (23-29); Chloride 109 mEq/L (98-107); Glucose 85 mg/dL (70-105); Magnesium 1.5 mg/dL (1.6-2.6); Osmolality,Calculated 276 (280-300); Potassium 3.7 mEq/L (3.5-5.1); Sodium 135 mEq/L (136-145); eGFR For African Americans > 60 (> 60); eGFR For Non-African Americans > 60 (> 60)
[2020-02-10] MEDS: Metoprolol XL (24 HR) Succ 25 MG TAB.ER.24H PO SCH (06:02)
[2020-02-10] MEDS: Vancomycin Oral Soln 125 MG/2.5 ML UDC PO SCH ×3 (06:02→17:49)
[2020-02-10] MEDS: Folic Acid 1 MG TABLET PO SCH (06:03)
[2020-02-10] MEDS: haloperidoL 5 MG TABLET PO SCH (06:03)
[2020-02-10] MEDS: Cyanocobalamin (B-12) 1,000 MCG TABLET PO SCH (06:03)
[2020-02-10] MEDS: Carbidopa/Levodopa 25/100 TABLET PO SCH ×2 (06:03→17:49)
[2020-02-10] MEDS: Sodium Bicarbonate 150 MEQ in D5% in Water 1,000 ML IVC SCH (07:38)
[2020-02-10] MEDS: Diphenoxylate/Atropine 1 TAB TABLET PO SCH (08:28)
[2020-02-10] MEDS: Lactobacillus 1 EACH CAP.SPRINK PO SCH (08:28)
[2020-02-10] MEDS: Ergocalciferol (VIT D2) 50,000 UNIT (1.25MG) CAP PO SCH (12:06)
[2020-02-10 17:32] LABS: BUN/Creatinine Ratio 5 (6-26); Blood Urea Nitrogen 3 mg/dL (6-20); Calcium 7.7 mg/dL (8.6-10.3); Carbon Dioxide 23 mEq/L (23-29); Chloride 107 mEq/L (98-107); Glucose 91 mg/dL (70-105); Osmolality,Calculated 276 (280-300); Potassium 3.8 mEq/L (3.5-5.1); Sodium 135 mEq/L (136-145); eGFR For African Americans > 60 (> 60); eGFR For Non-African Americans > 60 (> 60)
[2020-02-10] MEDS ORDERED: Acetaminophen IV 1,000 MG/100 ML INFUS..BTL IVPB ONE (23:33)
[2020-02-10] MEDS ORDERED: Isovue-370 500 ML BOTTLE IVP ONE (23:45)
[2020-02-11 00:37] LABS: Basophils % 0.2 %; Eosinophils % 0.1 %; Hemoglobin 11.3 g/dL (12.9-16.9); Immature Granulocytes % 0.5 % (0-4); Lymphocytes # 0.6 K/mcL (0.6-4.6); Lymphocytes % 3.1 %; Mean Corpuscular HGB Conc 33.2 g/dL (31.6-35.5); Mean Corpuscular Hemoglobin 32.1 pg (28.0-33.3); Mean Corpuscular Volume 96.6 fL (83.0-100.0); Mean Platelet Volume 12.2 fL (9.4-12.4); Monocytes # 1.1 K/mcL (0.0-1.3); Monocytes % 6.1 %; Neutrophils # 16.7 K/mcL (1.6-8.9); Platelet Count 103 K/mcL (140-400); Red Blood Count 3.52 M/mcL (4.19-5.50); Red Cell Distribution Width 18.6 % (11.5-14.5)
[2020-02-11 00:38] LABS: White Blood Count 18.5 K/mcL (4.3-11.1)
[2020-02-11 00:49] LABS: Alanine Aminotransferase 5 Units/L (7-52); Albumin 2.6 g/dL (3.5-5.7); Albumin/Globulin Ratio 0.9 (1.1-2.2); Alkaline Phosphatase 75 Units/L (34-104); Aspartate Amino Transferase 9 Units/L (13-39); BUN/Creatinine Ratio 7 (6-26); Bilirubin,Direct 0.1 mg/dL (0.0-0.2); Bilirubin,Indirect 0.5 mg/dL (0.0-1.0); Bilirubin,Total 0.6 mg/dL (0.3-1.0); Blood Urea Nitrogen 5 mg/dL (6-20); Carbon Dioxide 22 mEq/L (23-29); Chloride 105 mEq/L (98-107); Glucose 96 mg/dL (70-105); Osmolality,Calculated 275 (280-300); Potassium 4.1 mEq/L (3.5-5.1); Sodium 134 mEq/L (136-145); Total Protein 5.6 g/dL (6.4-8.9); eGFR For African Americans > 60 (> 60); eGFR For Non-African Americans > 60 (> 60)
[2020-02-11] MEDS ORDERED: 0.9 % Sodium Chloride 1,000 ML IVC ONE (02:03)
[2020-02-11] MEDS: Diphenoxylate/Atropine 1 TAB TABLET PO SCH (02:07)
[2020-02-11] MEDS: Divalproex (24 HR) 500 MG TABLET PO SCH (02:07)
[2020-02-11] MEDS: Piperacillin/Tazobactam 3.375 GM in 0.9 % Sodium Chloride Mini Bag 100 ML IVPB SCH ×3 (02:25→16:09)
[2020-02-11] MEDS: Vancomycin Oral Soln 125 MG/2.5 ML UDC PO SCH ×4 (02:27→16:09)
[2020-02-11] MEDS ORDERED: 0.9 % Sodium Chloride 1,000 ML ONE (03:51)
[2020-02-11 04:08] LABS: Hematocrit 28.8 % (37.5-50.1); Hemoglobin 9.5 g/dL (12.9-16.9); Immature Platelets 6.2 % (1.1-6.1); Mean Corpuscular Hemoglobin 32.5 pg (28.0-33.3); Mean Corpuscular Volume 98.6 fL (83.0-100.0); Mean Platelet Volume 11.5 fL (9.4-12.4); Red Blood Count 2.92 M/mcL (4.19-5.50); Red Cell Distribution Width 18.3 % (11.5-14.5)
[2020-02-11 04:26] LABS: BUN/Creatinine Ratio 8 (6-26); Blood Urea Nitrogen 6 mg/dL (6-20); Calcium 7.3 mg/dL (8.6-10.3); Carbon Dioxide 20 mEq/L (23-29); Chloride 107 mEq/L (98-107); Glucose 86 mg/dL (70-105); Magnesium 1.5 mg/dL (1.6-2.6); Osmolality,Calculated 273 (280-300); Phosphorous 3.6 mg/dL (2.7-4.5); Sodium 133 mEq/L (136-145); eGFR For African Americans > 60 (> 60); eGFR For Non-African Americans > 60 (> 60)
[2020-02-11] MEDS ORDERED: Albumin 25% 25gram/100mL 25 GM/100 ML IV.SOLN IVPB ONE (05:01)
[2020-02-11] MEDS: Pantoprazole 40 MG in 0.9 % Sodium Chloride Mini Bag 100 ML IVC SCH (06:21)
[2020-02-11] MEDS: Metoprolol XL (24 HR) Succ 25 MG TAB.ER.24H PO SCH (06:24)
[2020-02-11] MEDS: Calcium Gluconate 1gm/50mL 1 GM/50 ML BAG IVPB SCH ×2 (06:48→07:55)
[2020-02-11] MEDS: 0.9 % Sodium Chloride 1,000 ML IVC SCH ×2 (06:49→16:11)
[2020-02-11] MEDS: Cyanocobalamin (B-12) 1,000 MCG TABLET PO SCH (07:04)
[2020-02-11] MEDS: Folic Acid 1 MG TABLET PO SCH (07:05)
[2020-02-11] MEDS: haloperidoL 5 MG TABLET PO SCH (07:05)
[2020-02-11] MEDS: Carbidopa/Levodopa 25/100 TABLET PO SCH ×2 (07:05→16:08)
[2020-02-11] MEDS: Lactobacillus 1 EACH CAP.SPRINK PO SCH (07:56)
[2020-02-11] MEDS: Cholestyramine 4 GM POWD.PACK PO SCH ×4 (07:56→20:02)
[2020-02-11 08:56] LABS: Hematocrit 29.9 % (37.5-50.1); Hemoglobin 9.7 g/dL (12.9-16.9)
[2020-02-11 12:38] LABS: Hematocrit 30.8 % (37.5-50.1); Hemoglobin 9.9 g/dL (12.9-16.9)
[2020-02-11 12:53] LABS: BUN/Creatinine Ratio 10 (6-26); Blood Urea Nitrogen 7 mg/dL (6-20); Calcium 8.2 mg/dL (8.6-10.3); Carbon Dioxide 20 mEq/L (23-29); Chloride 107 mEq/L (98-107); Glucose 88 mg/dL (70-105); Osmolality,Calculated 275 (280-300); Sodium 134 mEq/L (136-145); eGFR For African Americans > 60 (> 60); eGFR For Non-African Americans > 60 (> 60)
[2020-02-11 16:43] LABS: Hematocrit 28.7 % (37.5-50.1); Hemoglobin 9.1 g/dL (12.9-16.9)
[2020-02-12] MEDS: Divalproex (24 HR) 500 MG TABLET PO SCH ×2 (00:11→23:01)
[2020-02-12] MEDS: Vancomycin Oral Soln 125 MG/2.5 ML UDC PO SCH ×5 (00:12→23:01)
[2020-02-12 00:22] LABS: Hematocrit 25.2 % (37.5-50.1); Hemoglobin 9.9 g/dL (12.9-16.9)
[2020-02-12] MEDS: Piperacillin/Tazobactam 3.375 GM in 0.9 % Sodium Chloride Mini Bag 100 ML IVPB SCH ×2 (00:57→07:59)
[2020-02-12] MEDS: Pantoprazole 40 MG in 0.9 % Sodium Chloride Mini Bag 100 ML IVC SCH ×2 (01:00→06:28)
[2020-02-12] MEDS: 0.9 % Sodium Chloride 1,000 ML IVC SCH ×2 (03:50→17:23)
[2020-02-12 04:46] LABS: Hematocrit 24.3 % (37.5-50.1); Immature Platelets 8.3 % (1.1-6.1); Mean Corpuscular HGB Conc 32.9 g/dL (31.6-35.5); Mean Corpuscular Hemoglobin 32.3 pg (28.0-33.3); Mean Platelet Volume 11.8 fL (9.4-12.4); Red Blood Count 2.48 M/mcL (4.19-5.50); White Blood Count 19.3 K/mcL (4.3-11.1)
[2020-02-12 04:49] LABS: Hematocrit 24.2 % (37.5-50.1); Hemoglobin 8.2 g/dL (12.9-16.9)
[2020-02-12 05:10] LABS: BUN/Creatinine Ratio 12 (6-26); Blood Urea Nitrogen 8 mg/dL (6-20); Calcium 7.4 mg/dL (8.6-10.3); Carbon Dioxide 19 mEq/L (23-29); Chloride 107 mEq/L (98-107); Glucose 70 mg/dL (70-105); Magnesium 1.3 mg/dL (1.6-2.6); Osmolality,Calculated 269 (280-300); Potassium 3.4 mEq/L (3.5-5.1); Sodium 131 mEq/L (136-145); eGFR For African Americans > 60 (> 60); eGFR For Non-African Americans > 60 (> 60)
[2020-02-12] MEDS: Folic Acid 1 MG TABLET PO SCH (06:16)
[2020-02-12] MEDS: Cyanocobalamin (B-12) 1,000 MCG TABLET PO SCH (06:16)
[2020-02-12] MEDS: haloperidoL 5 MG TABLET PO SCH (06:16)
[2020-02-12] MEDS: Metoprolol XL (24 HR) Succ 25 MG TAB.ER.24H PO SCH (06:16)
[2020-02-12] MEDS: Carbidopa/Levodopa 25/100 TABLET PO SCH ×2 (06:16→19:26)
[2020-02-12 07:54] LABS: Hematocrit 24.3 % (37.5-50.1); Hemoglobin 8.1 g/dL (12.9-16.9)
[2020-02-12] MEDS: Cholestyramine 4 GM POWD.PACK PO SCH ×4 (07:59→19:58)
[2020-02-12] MEDS: Lactobacillus 1 EACH CAP.SPRINK PO SCH (07:59)
[2020-02-12] MEDS: metroNIDAZOLE 500 MG TABLET PO SCH ×3 (09:21→19:58)
[2020-02-12] MEDS: levoFLOXacin 750 MG TABLET PO SCH (09:21)
[2020-02-12] MEDS: predniSONE 20 MG TABLET PO SCH (09:21)
[2020-02-12] MEDS ORDERED: 0.9 % Sodium Chloride 250 ML IVC SCH (10:00)
[2020-02-12 10:37] LABS: Hemoglobin 8.6 g/dL (12.9-16.9)
[2020-02-12 10:39] LABS: Hematocrit 26.3 % (37.5-50.1)
[2020-02-12 11:07] LABS: Iron < 10 mcg/dL (65-175); Transferrin 94 mg/dL (203-362)
[2020-02-12] MEDS ORDERED: Iron Sucrose Complex 250 MG in 0.9 % Sodium Chloride 250 ML IVPB SCH (15:45)
[2020-02-12] MEDS: Pantoprazole 40 MG VIAL IVP SCH (17:24)
[2020-02-12 18:52] LABS: Hematocrit 31.8 % (37.5-50.1)
[2020-02-13 01:14] LABS: Hematocrit 27.6 % (37.5-50.1); Hemoglobin 8.9 g/dL (12.9-16.9); Immature Platelets 9.8 % (1.1-6.1); Mean Corpuscular HGB Conc 32.2 g/dL (31.6-35.5); Mean Corpuscular Hemoglobin 32.4 pg (28.0-33.3); Mean Corpuscular Volume 100.4 fL (83.0-100.0); Mean Platelet Volume 11.9 fL (9.4-12.4); Red Blood Count 2.75 M/mcL (4.19-5.50); Red Cell Distribution Width 17.7 % (11.5-14.5); White Blood Count 16.6 K/mcL (4.3-11.1)
[2020-02-13 01:27] LABS: BUN/Creatinine Ratio 13 (6-26); Blood Urea Nitrogen 8 mg/dL (6-20); Calcium 7.7 mg/dL (8.6-10.3); Carbon Dioxide 12 mEq/L (23-29); Chloride 106 mEq/L (98-107); Glucose 121 mg/dL (70-105); Osmolality,Calculated 266 (280-300); Potassium 3.3 mEq/L (3.5-5.1); Sodium 128 mEq/L (136-145); eGFR For African Americans > 60 (> 60); eGFR For Non-African Americans > 60 (> 60)
[2020-02-13] MEDS: Pantoprazole 40 MG VIAL IVP SCH (06:02)
[2020-02-13] MEDS: haloperidoL 5 MG TABLET PO SCH (06:02)
[2020-02-13] MEDS: Carbidopa/Levodopa 25/100 TABLET PO SCH (06:02)
[2020-02-13] MEDS: Vancomycin Oral Soln 125 MG/2.5 ML UDC PO SCH (06:02)
[2020-02-13] MEDS: Folic Acid 1 MG TABLET PO SCH (06:02)
[2020-02-13] MEDS: Cyanocobalamin (B-12) 1,000 MCG TABLET PO SCH (06:03)
[2020-02-13] MEDS: Metoprolol XL (24 HR) Succ 25 MG TAB.ER.24H PO SCH (06:03)
[2020-02-13] MEDS ORDERED: *HR* FentaNYL (PF) 100 MCG/2 ML VIAL ONE (06:55)
[2020-02-13] MEDS ORDERED: *HR* Midazolam HCl 5 MG/5 ML VIAL IVP ONE (06:56)
[2020-02-13 07:22] VITALS: BP 123/79
[2020-02-13] MEDS ORDERED: Potassium Chloride Elixir 20 MEQ/15 ML UDC PO ONE (09:14)
[2020-02-13] MEDS: metroNIDAZOLE 500 MG TABLET PO SCH (09:36)
[2020-02-13] MEDS: Lactobacillus 1 EACH CAP.SPRINK PO SCH (09:37)
[2020-02-13] MEDS: predniSONE 20 MG TABLET PO SCH (09:37)
[2020-02-13] MEDS: levoFLOXacin 750 MG TABLET PO SCH (09:37)
== END 2020-02-13 10:37 | DRG 871 ==
LOC: EMEROOARM 15:08 → 2ANU 15:08 → SUATTDRO 17:40 → 2ANU 18:40
PROVIDERS: ADMIT Internal Medicine; ATTEND Family Medicine